=== PATIENT | male | born 1985 | race Asian ===

== ENCOUNTER 2018-09-09 19:22 | Emergency (ER) | payer MEDICAID ==
[2018-09-09 19:28] VITALS: BP 122/78
[2018-09-09] MEDS ORDERED: KETOROLAC 30 MG/1 ML SDV IM ONE (21:09)
--- NOTE | 2018-09-09 21:11 | EDPHY ---
H & P Time Seen by Provider: 09/09/18 20:20 HPI/ROS: CHIEF COMPLAINT: Chest pain and arm tingling HISTORY OF PRESENT ILLNESS: 33-year-old male presents emergency department reporting that about 6 weeks ago he developed some left anterior chest discomfort. Described as a constant, achy discomfort. He was seen in emergency department after 3 weeks of pain at that time he describes having an EKG, chest x-ray, blood work. The patient followed up with his primary care physician several days later and was told that there was no clear reason for his discomfort. Sounds like he had a bit of time with minimal discomfort but the pain has again recurred. Over the last several days he has also noticed some tingling into his left arm. He can identify no clear exacerbating or relieving factors. He does note that it is worse when he is laying down at night when he feels this pressure-like discomfort that makes it hard to sleep. He endorses anxiety. 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 No associated nausea or vomiting, no associated shortness of breath, palpitations, lightheadedness, dizziness. No history of hypertension, diabetes, high cholesterol, smoking, no coronary artery disease, or illicit drug use. No GI symptoms, fevers, chills, cough or sputum production. REVIEW OF SYSTEMS: A comprehensive 10 system review of systems was reviewed and is otherwise negative aside from elements mentioned in the history of present illness. PAST MEDICAL HISTORY: Patient denies. SOCIAL HISTORY: Nonsmoker, no illicit drug use, occasional alcohol. VITAL SIGNS: see nurse's notes. GENERAL: Well-developed, well-nourished, no respiratory distress HEENT: Atraumatic. Eyes: No injection or icterus. Oropharynx: No erythema , no injection, no swelling. Neck: No JVD, no bruits, supple with no adenopathy. LUNGS: Clear to auscultation bilaterally, no wheezes, rhonchi or rales. CHEST: Moderate tenderness across the left pectoralis muscles. No rash. CARDIAC: Regular rate and rhythm, no murmurs, no rubs, no gallops. ABDOMEN: Soft, nontender, nondistended, bowel sounds normal. BACK: No CVA tenderness. EXTREMITIES: No trauma. No clubbing, cyanosis or edema. Range of motion is normal throughout. Pulses are 2+ and equal in the upper extremities. Normal sensation in all fingers of the left hand. No change in sensation when raising the hand above the head. No swelling. No rash. NEURO: Alert and oriented , grossly nonfocal. SKIN: No diaphoresis, warm and dry, no rash. Smoking Status: Never smoked Constitutional: Initial Vital Signs Temperature (C) 36.5 C 09/09/18 19:25 Heart Rate 92 09/09/18 19:25 Respiratory Rate 16 09/09/18 19:25 Blood Pressure 122/78 H 09/09/18 19:25 O2 Sat (%) 96 09/09/18 19:25 O2 Delivery Mode Room Air Allergies/Adverse Reactions: shrimp Allergy (Verified 09/09/18 19:28) Home Medications: Medication Instructions Recorded NK [No Known Home Meds] 09/09/18 Medical Decision Making - Diagnostics EKG Interpretation: 12-LEAD EKG: Please see the full report in [facility]. My interpretation: Sinus rhythm, no ST or T-wave changes. Imaging Results: Imaging Impressions Chest X-Ray 09/09/18 20:40 Impression: No acute pulmonary disease. Imaging: I viewed and interpreted images myself ED Course/Re-evaluation: 33-year-old male presents with chest discomfort which is been present for many weeks. Over the last several days is been associated with some tingling into his left upper extremity. I doubt cardiac etiology at this time. Patient has no risk factors, normal EKG , any history of no change with exertion. Suspect this may be musculoskeletal with the tenderness and there may be an anxiety component as the patient states he lays awake at night feeling the discomfort and feels like it is hard for him to fall asleep. I think the Patient is safe to be discharged home with close follow-up. Patient will also discussed the possibility of thoracic outlet syndrome with his primary care physician. He is instructed to take ibuprofen 600 mg three times daily. Differential Diagnosis: After history and physical examination, the differential for chest pain was considered, including but not limited to, myocardial ischemia, acute coronary syndrome, pulmonary embolus, chest wall pain, pleural inflammation and pulmonary infectious causes. - Data Points Medications Given: Discontinued Medications Ketorolac Tromethamine (Toradol) 30 mg IM EDNOW ONE Stop: 09/09/18 21:10 Last Admin: 09/09/18 21:27 Dose: 30 mg Departure - Departure Disposition: Home, Routine, Self-Care Clinical Impression: Chest pain Qualifiers: Chest pain type: other chest pain Qualified Code(s): R07.89 - Other chest pain Condition: Good Instructions: Chest Pain (ED) Additional Instructions: For your chest discomfort, I recommend that you take ibuprofen 600 mg on a regular basis for the next several days. 600 mg every 6-8 hours with food. This will help with any inflammation in the chest and chest wall. If you continue to developed tingling sensation in her arm, I recommend that she follow up with her primary care physician for consideration of thoracic outlet syndrome. Referrals: NONE *PRIMARY CARE P,. [Primary Care Provider] - As per Instructions
== END 2018-09-09 21:30 | disposition home or self-care (01) ==
DX: R07.89 Other chest pain (principal); R20.2 Paresthesia of skin
CPT/HCPCS: J1885